=== PATIENT | female | born 1970 | race Hispanic/Latino ===

== ENCOUNTER 2019-09-12 07:14 | Day surgery (SDC) | payer OTHER ==
[2019-09-11 10:57] VITALS: BP 116/65
[2019-09-11 11:18] LABS: CREATININE 0.8 mg/dL (0.5-1.5); POTASSIUM 4.5 mmol/L (3.5-5.1)
[2019-09-11 11:38] LABS: BASOPHILS % (AUTO) 0.7 % (0.0-5.0); EOSINOPHILS % (AUTO) 1.5 % (0.0-8.0); HEMATOCRIT 41.8 % (36-48); LYMPHOCYTES % (AUTO) 30.6 % (21.0-51.0); MEAN CORPUSCULAR HGB CONC 31.6 g/dL (32.0-36.0); MEAN CORPUSCULAR VOLUME 85.5 fL (79-99); MONOCYTES % (AUTO) 9.3 % (3.0-13.0); NEUTROPHILS % (AUTO) 57.7 % (40.0-77.0); PLATELET COUNT (AUTO) 308 K/uL (130-400); RED BLOOD CELL COUNT(AUTO) 4.89 MIL/uL (4.00-5.50); RED CELL DISTRIBUTION WIDTH 13.6 % (11.0-15.5); WHITE BLOOD COUNT (AUTO) 5.9 K/uL (4.8-10.8)
[2019-09-12] VITALS (16 sets, daily range): BP systolic 110–145; BP diastolic 70–95
[~2019-09-12] VITALS: Ht 157.5 cm; Wt 74.8 kg
[2019-09-12] MEDS ORDERED: CEFAZOLIN SODIUM 1 GM VIAL ONE ×2 (09:12→10:14)
[2019-09-12] MEDS ORDERED: LACTATED RINGERS 1000ML 1,000 ML IV ONE (09:12)
[2019-09-12] MEDS ORDERED: LIDOCAINE PF 2% 5ML ABBOJECT ONE (09:34)
[2019-09-12] MEDS ORDERED: PROPOFOL 10 MG/ML 20ML VIAL IV ONE (09:34)
[2019-09-12] MEDS ORDERED: MIDAZOLAM HCL 1 MG/ML 2ML VIAL ONE (09:34)
[2019-09-12] MEDS ORDERED: FENTANYL CITRATE PF 50 MCG/1 ML 5ML AMP IV ONE (09:35)
[2019-09-12] MEDS ORDERED: ROPIVACAINE 0.5% 5MG/ML 30ML IJ ONE (09:40)
[2019-09-12] MEDS ORDERED: BUPIVACAINE/PF 0.25% 30ML VIAL IJ ONE (09:53)
[2019-09-12] MEDS ORDERED: EPHEDRINE SULFATE 50 MG/ML AMPULE ONE (09:57)
[2019-09-12] MEDS ORDERED: ONDANSETRON HCL 4 MG/2 ML VIAL ONE (10:04)
[2019-09-12] MEDS ORDERED: DEXAMETHASONE SOD PHOSPHATE 10MG/ML 1ML VIAL ONE (10:04)
[2019-09-12] MEDS ORDERED: KETOROLAC TROMETHAMINE 30MG/ML ONE (10:04)
--- NOTE | 2019-09-12 12:15 | NUR ---
PATIENT ARRIVED TO DAY PATIENT VIA STRETCHER BY NICOLETTE SAVAGE. PATIENT AAOX3, RESPIRATIONS UNLABORED, VITAL SIGNS. BOOT/CELESTE WRAP TO RIGHT LOWER EXTREMITY. PATIENT ABLE TO MOVE TOES TO RIGHT LOWER EXTREMITY, CAPILLARY REFILL <3 SECS TO BILATERAL TOES.
--- NOTE | 2019-09-12 12:45 | NUR ---
DISCHARGE INSTRUCTIONS PROVIDED TO PATIENT AND PATIENT'S SPOUSE. PRESCRIPTIONS PROVIDED AND FOLLOW UP APPOINTMENT PROVIDED, ALL QUESTIONS ANSWERED. PATIENT INSTRUCTED TO KEEP DRESSING CLEAN AND DRY, DO NOT GET WET OR REMOVE DRESSING UNTIL SEEN BY DR NAVARRETE IN OFFICE.
--- NOTE | 2019-09-12 13:10 | NUR ---
PATIENT DISCHARGED FROM FACILITY VIA WHEELCHAIR BY LEV LEARY MA. PATIENT ASSISTED INTO PRIVATE VEHICLE DRIVEN BY SPOUSE.
== END 2019-09-12 13:10 | disposition home or self-care (01) ==
LOC: DAH 07:14
PROVIDERS: ATTEND Orthopaedic Surgery
DX: S82.62XA Displaced fracture of lateral malleolus of left fibula, initial encounter for closed fracture (principal); X58.XXXA Exposure to other specified factors, initial encounter; Y93.73 Activity, racquet and hand sports; Y93.89 Activity, other specified; Y92.89 Other specified places as the place of occurrence of the external cause; Y99.8 Other external cause status
CPT/HCPCS: 27792; 36415; 64445; 73610; 76942; 80048; 84703; 85025; A4213; A4215; A4221; A4222; A4223 ×2; A4450; A4649 ×5; A4663; A4930 ×2; A5120; A6223; A6260; C1713 ×5; C1776; J0690; J1100; J1885; J2001; J2250; J2405; J2704; J2795; J3010; J3490; J7120 ×2